=== PATIENT | male | born 1990 | race Caucasian/White ===

== ENCOUNTER 2018-05-30 08:32 | Emergency (ER) | payer SELFPAY ==
[2018-05-30 08:37] VITALS: BP 130/83; PULSE 75; RESP 16; TEMP 36.5; O2SAT 100
[2018-05-30 09:06] LABS: Bilirubin Negative (Negative); Blood Negative (Negative); Clarity Clear; Glucose Negative (Negative); Ketones Trace mg/dL (Negative); Leukocyte Esterase Negative (Negative); Nitrite Negative (Negative); Specific Gravity 1.015 (1.005-1.025); Urobilinogen 0.2 EU/dL (Up TO 0.2)
[2018-05-30 09:16] LABS: Bacteria Few HPF (Negative); C & S Indicated? No; Casts Negative LPF (Negative); Crystals Moderate Amorphous HPF (Negative); Epithelial Cells Negative HPF (Negative); Mucus Trace (Negative); RBC 0-2 (0-2); WBC 0-2 HPF (0-5)
--- NOTE | 2018-05-30 09:23 | DI.CT_ITS ---
SYMPTOMS/DIAGNOSIS: RIVER, KICKED IN LEFT LOWER QUADRANT BY DRAFT HORSE, NOTABLE PAIN CT SCAN OF THE ABDOMEN AND PELVIS: CT scan of the abdomen and pelvis was performed following the uneventful administration of intravenous contrast material. There are no priors for comparison. The visualized lung bases are clear. The liver, spleen, pancreas, gallbladder, bile ducts and adrenal glands are unremarkable. The kidneys, ureters and bladder are unremarkable. The reproductive organs are unremarkable. There is a large amount of stool in the colon, predominantly in the rectum. No evidence of bowel obstruction, inflammation or infection is seen. There are surgical clips in the right lower quadrant, which may reflect prior appendectomy. The abdominal aorta is of normal caliber. No significant abdominal or pelvic adenopathy or pneumoperitoneum is seen. There is a trace amount of free fluid in the pelvis. No acute fracture is identified. The soft tissues are unremarkable. IMPRESSION: Small amount of free fluid in the pelvis, but otherwise negative CT scan of the abdomen and pelvis. The findings were discussed with the Emergency Department on the date of the examination.
--- NOTE | 2018-05-30 09:40 | ED.GENADUL_ITS ---
Discharge Plan Disposition Patient Disposition: HOME Condition: Good Discharge Details Chief Complaint: Trauma Clinical Impression: Abdominal pain, Abdominal trauma Primary Care Provider: NONE,NONE ED Provider: Grey Chang Home Meds and New Rx's Prescriptions: No Action No Known Home Meds RF: 0 Discharge Instructions Instructions: Abdominal Pain (ED) Additional Instructions: If you notice any worsening of your symptoms whatsoever please return immediately. If you notice any vomiting or diarrhea please return. If you notice any blood in your stool, please return immediately. Please follow-up with your primary care provider as soon as possible. if you notice any worsening of your symptoms, or any new symptoms such as vomiting, diarrhea, fever, chills, shortness of breath, chest pain, numbness, weakness, or fainting , please return immediately to the emergency department for reevaluation. Please follow up with your primary care provider as soon as possible for reassessment and reevaluation. As always, it was a pleasure participating in your medical care today. Discharge Data Discharge Date/Time-TO BE ENTERED AT DEPARTURE: 05/30/18 11:57 Medical Decision Making This is a pleasant 27-year-old [facility] gentleman who presents for evaluation after being kicked by a [place] horse in the left upper abdomen. He had no loss of consciousness originally. On initial evaluation the patient wanted it made clear that he did not have insurance and he wanted to be very cautious about any tests that were ordered as he was concerned about payment as he is paying out of pocket. Initial physical exam demonstrated tenderness in the left upper left lower and right lower abdominal quadrants. As well as tenderness over the anterior ribs in the left upper abdominal quadrant. No genital abnormalities, no pleuritic chest pain, no other significant abnormalities. Bedside fast and a E FAST exam demonstrated no evidence of free fluid or other abnormality. I did discuss with the patient further workup, and we did perform a urinalysis which shows no abnormalities or hematuria. I do long discussion with the patient about her limitation with understanding intra- abdominal bleeds, based on just the ultrasound and the urinalysis, and through shared decision making process the patient requested a CT scan of the abdomen pelvis. His request was to hold off on any other additional testing including laboratory workup at this time. I discussed with he and his that this will not give us a complete very clear picture however CT scan is the most helpful component at this time, and the patient and his understand. We will get a CT scan for further evaluation of any potential intra-abdominal pathology secondary to getting kicked by his horse. The patient is requesting nothing for pain or analgesia at this time. IMPRESSION: Small amount of free fluid in the pelvis, but otherwise negative CT scan of the abdomen and pelvis. CT results have returned and demonstrate small amount of free fluid in the pelvis but otherwise negative CT scan. Reevaluation demonstrates the patient with continually normal vital signs. No evidence of tachycardia. Repeat abdominal exam demonstrates minimal tenderness, no signs of guarding or rebound at this time. Patient states that after he has been resting here in the emergency department he has begun to feel much better. Because of the small amount of free fluid in the pelvis I did discuss with the patient the potential for hollow viscus injury which can only be seen and assessed at a later time through repeat serial abdominal exams, and close monitoring. Although I feel this unlikely with the patient's current abdominal exam, normal vital signs, and negative urinalysis I did discuss with the patient the potential for admission, and serial exams. The patient is uninterested in admission at this time and states that since he feels well he would like to go home. I feel that this is reasonable however I did have a long and thorough discussion with the patient and his who is at bedside regarding red flags, signs and symptoms, and physical exam findings that would be concerning and suggest a potential hollow viscus injury or worsening abdominal pathology. We discussed red flags for which to return the patient understands. I have extensively reviewed the treatment plan and discharge instructions with the patient and their family. I have addressed all patient concerns at this time. The patient and family was made aware of what symptoms to monitor for that would warrant a return to the emergency department. Discussed the plan with the patient and family, they demonstrate verbal understanding and agreement with our assessment and plan at this time. HPI General Date/Time Provider Initiated Documentation: 05/30/18 08:51 . HPI Narrative: This is a 27-year-old [place] gentleman who presents for evaluation of left sided abdominal pain. Patient states that roughly 1 hour prior to arrival he was kicked in the left upper abdomen by [place] horse. He did not lose consciousness, but he did have notable pain in the area. He did not hit his head and he denies being struck anywhere denies any pain anywhere else. He did have one bowel movement after the initial episode, and this is nonbloody with no abnormalities. He has urinated and denies any hematuria. He denies any chest pain, pleuritic chest pain, cough, shortness of breath. He does admit to some pain in the left upper abdominal quadrant by the left lower lateral ribs, but denies any pain in the chest itself otherwise. The patient's pain is achy in nature, it radiates to the left lower quadrant and the right lower quadrant. It is worse with movement and palpation. No relieving factors. The patient denies any medication use, but does admit to occasional tobacco and alcohol use. The patient denies any other complaints at this time. Patient does state that he has no insurance and will be only pain with johnson [id number], and specifically requests that only the bare minimum of testing be done as necessary, and that all tests are discussed with him prior to being ordered. I think this is reasonable. Patient denies any pertinent family history. He has no other complaints at this time. Related Data Home Medications Medication Instructions Recorded Confirmed Unknown [No Known Home Meds] 05/30/18 05/30/18 Allergies Allergy/AdvReac Type Severity Reaction Status Date / Time No Known Allergies Allergy Unverified 05/30/18 08:43 General Stated Complaint: Trauma NIC: 2 Review of Systems Review of Systems All systems reviewed & are unremarkable except as noted in HPI and below PFSH Social History Smoking/Tobacco Use Status: Current every day Exam Narrative Exam Narrative: 1.Const: Well-nourished, Well-developed, appearing stated age 2.Eyes: PERRL, no conjunctival injection, and symmetrical lids. 3.ENT: Atraumatic external nose and ears. Moist MM. Neck: Symmetric, trachea midline, No thyromegaly. 4.CVS: Regular rate and rhythm, Normal s1 and s2. No murmurs, carotid bruits, rubs, or gallops. Radial pulses 2+ bilaterally and symmetric. Dorsalis pedis pulses 2+ bilaterally and symmetric. 2+ capillary refill. No evidence of distant heart sounds. No extremity edema. No evidence of gross hemorrhage. 5.RESP: Airway clear, no obstructions. No abrasions or ecchymosis. Chest movement symmetric with respirations. No chest wall tenderness. Trachea midline. No crepitus. No step offs. No paradoxical movements. Lungs are clear to auscultation bilaterally. No rales, rhonchi, wheezing or stridor. Breath sound symmetric. No Sucking chest wounds. No clinical evidence of significant chest trauma. Patient does have mild tenderness on the left lower chest wall over the edges of the ribs 4 ribs 8 9 and 10. No bruising or other abnormalities peer 6.GI: Soft, nondistended, mild to moderate tenderness in the left upper quadrant , left lower quadrant with rebound pain in the right lower quadrant. Bowel tones normoactive. No masses or organomegaly. No ecchymosis or abrasions. No periumbilical ecchymosis or seatbelt sign. No flank or CVA tenderness. No clinical signs of significant trauma. Genital Exam: Intact and traumatically unremarkable genital and rectal exam with no significant bruising, blood, or deformity. . No clinical evidence of significant abdominal trauma. 7.MSK: No gross deformities or discolorations or lesions. Tolerates full range of motion of extremities without tenderness. All compartments of upper and lower extremities are soft with no tenderness. Vascular exam demonstrates brisk capillary refill and intact pulses in all extremities. Pelvic exam demonstrates a stable pelvis, nontender to lateral compression and palpation of symphysis pubis.. No clinical evidence of significant musculoskeletal trauma. 8.Skin: Warm, Dry. No rashes or lesions. 9.Neuro: brush stainer II-XII grossly intact. Sensation grossly intact, no focal neurologic deficits. 10.Psych: (AAO) x3. Appropriate mood and affect Course Vital Signs Temperature 36.5 C 05/30/18 08:37 Pulse 75 05/30/18 08:37 Respiratory Rate 16 05/30/18 08:37 Blood Pressure 130/83 05/30/18 08:37 Pulse Oximetry 100 05/30/18 08:37 Temperature 36.5 C 05/30/18 08:37 Temperature Source Skin 05/30/18 08:37 Pulse 75 05/30/18 08:37 Respiratory Rate 16 05/30/18 08:37 Respiratory Effort 05/30/18 08:44 Respiratory Depth Normal 05/30/18 08:44 Respiratory Pattern Normal 05/30/18 08:44 Blood Pressure 130/83 05/30/18 08:37 Blood Pressure Position Sitting 05/30/18 08:37 Pulse Oximetry 100 05/30/18 08:37 Oxygen Delivery Method Room Air 05/30/18 08:37 Oxygen Flow Rate 0 05/30/18 08:37 Lab/Test Results Lab/Test Results: Laboratory Tests Range/Units 05/30/18 08:55 Urine Color (Yellow) Yellow Urine Clarity Clear Urine pH (5-8) 7.0 Ur Specific Mikado (1.005-1.025) 1.015 Urine Protein (Negative) mg/dL 30 H Urine Ketones (Negative) mg/dL Trace H Urine Blood (Negative) Negative Urine Nitrite (Negative) Negative Urine Bilirubin (Negative) Negative Urine Urobilinogen (Up TO 0.2) EU/dL 0.2 Ur Leukocyte Esterase (Negative) Negative Urine RBC (0-2) 0-2 Urine WBC (0-5) HPF 0-2 Ur Epithelial Cells (Negative) HPF Negative Urine Crystals (Negative) HPF Moderate amorphous Urine Bacteria (Negative) HPF Few Urine Casts (Negative) LPF Negative Urine Mucus (Negative) Trace Ur Culture Indicated? No Urine Glucose (Negative) mg/dL Negative
[2018-05-30] MEDS: Omnipaque 350 MG/ML 100 ML BTL IJ (10:28)
[2018-05-30 10:56] VITALS: BP 106/85; PULSE 71; RESP 16; TEMP 36.5; O2SAT 98
== END 2018-05-30 11:57 | disposition home or self-care (01) ==
LOC: ER 11:27
PROVIDERS: Emergency Provider Student in an Organized Health Care Education/Training Program
DX: R10.31 Right lower quadrant pain (principal); S39.91XA Unspecified injury of abdomen, initial encounter; W55.12XA Struck by horse, initial encounter; R07.81 Pleurodynia
CPT/HCPCS: 99285; 74177; 81003; 81015; 99284; J3490